=== PATIENT | male | born 1985 | race Two or more races ===

== ENCOUNTER 2023-02-08 22:47 | Emergency (ER) | payer OTHER ==
[2023-02-08 23:06] VITALS: BP 146/92; PULSE 91; RESP 20; TEMP 98.7; BMI 31.4
[2023-02-08] MEDS ORDERED: ACETAMINOPHEN 500 MG TABLET (FP) PO ONE (23:18)
[2023-02-08] MEDS ORDERED: ACETAMINOPHEN 500 MG TABLET (FP) ONE (23:20)
== END 2023-02-09 01:33 | disposition home or self-care (01) ==
LOC: JER 22:47
PROC: 0PSPXZZ Reposition Right Metacarpal, External Approach (ICD-10-PCS; principal; 2023-02-08)
PROC: 2W3GX1Z Immobilization of Right Thumb using Splint (ICD-10-PCS; 2023-02-08)
DX: S62.339A Displaced fracture of neck of unspecified metacarpal bone, initial encounter for closed fracture (principal); S62.324A Displaced fracture of shaft of fourth metacarpal bone, right hand, initial encounter for closed fracture; W22.09XA Striking against other stationary object, initial encounter
CPT/HCPCS: 73110-TC-RT-FY; 73130-TC-RT-FY; 99285-25

== ENCOUNTER 2023-04-07 16:55 | Emergency (ER) | payer OTHER ==
[2023-04-07 17:06] VITALS: BP 137/89; PULSE 83; RESP 18; TEMP 98; BMI 32.1
[2023-04-07] MEDS ORDERED: CYCLOBENZAPRINE HCL 10 MG TABLET (FP) PO ONE (17:57)
[2023-04-07] MEDS ORDERED: LIDOCAINE 5% TOPICAL PATCH TP ONE (17:57)
[2023-04-07] MEDS ORDERED: KETOROLAC TROMETHAMINE 30 MG/1 ML VIAL IM ONE (17:57)
[2023-04-07] MEDS ORDERED: KETOROLAC TROMETHAMINE 30 MG/1 ML VIAL ONE (17:59)
[2023-04-07] MEDS ORDERED: CYCLOBENZAPRINE HCL 10 MG TABLET (FP) ONE (17:59)
[2023-04-07] MEDS ORDERED: LIDOCAINE 5% TOPICAL PATCH ONE (17:59)
[2023-04-07] MEDS ORDERED: LIDOCAINE PATCH REMOVAL MC SCH (22:00)
== END 2023-04-07 19:19 | disposition home or self-care (01) ==
LOC: JERFT 16:55
PROC: 3E0233Z Introduction of Anti-inflammatory into Muscle, Percutaneous Approach (ICD-10-PCS; principal; 2023-04-07)
DX: R07.2 Precordial pain (principal); M94.0 Chondrocostal junction syndrome [Tietze]; V49.50XA Passenger injured in collision with unspecified motor vehicles in traffic accident, initial encounter
CPT/HCPCS: 71045-TC-FY; 93005; 93010; 99284-25

== ENCOUNTER 2023-06-28 08:46 | Emergency (ER) | payer OTHER ==
[2023-06-28 08:54] VITALS: BMI 30.7
[2023-06-28] MEDS ORDERED: DEXAMETHASONE SOD PHOSPHATE 10 MG/1 ML VIAL PO ONE (09:24)
[2023-06-28] MEDS ORDERED: ACETAMINOPHEN 500 MG TABLET (FP) PO ONE (09:24)
[2023-06-28] MEDS ORDERED: DEXAMETHASONE SOD PHOSPHATE 10 MG/1 ML VIAL ONE (09:29)
[2023-06-28] MEDS ORDERED: ACETAMINOPHEN 500 MG TABLET (FP) ONE (09:29)
[2023-06-28 10:08] LABS: THROAT:GRP A STREP NOT DETECTED (NOTDETECTED)
[2023-06-28 11:19] LABS: BASO % 0.7 % (0-2.0); EOS % 0.3 % (0-4.5); HEMATOCRIT 44.9 % (35.4-49); HEMOGLOBIN 15.5 GM/dL (11.7-16.9); LYMPH % 14.8 % (8-40); MCH 30.7 pg (25.7-33.7); MCHC 34.5 g/dl (32.0-35.9); MEAN CELL VOLUME 88.9 fl (80-96); MEAN PLT VOLUME 6.8 fl (7.5-11.1); MONO % 2.7 % (3.8-10.2); NEUT % 81.5 % (42.8-82.8); PLATELET COUNT 356 10^3/uL (134-434); RBC 5.05 M/mm3 (4.00-5.60); RDW 12.8 % (11.9-15.9); WHITE BLOOD COUNT 11.6 K/mm3 (4.0-10.0)
[2023-06-28 11:41] LABS: POTASSIUM 4.6 mmol/L (3.5-5.1)
[2023-06-28 11:43] LABS: BLOOD UREA NITROGEN 12.6 mg/dL (7-18); CALCIUM 9.1 mg/dL (8.5-10.1)
[2023-06-28] MEDS ORDERED: IBUPROFEN 600 MG TABLET (FP) PO ONE ×2 (14:06→14:42)
[2023-06-28 16:29] VITALS: BP 135/78; PULSE 85; RESP 18; TEMP 98
== END 2023-06-28 16:29 | disposition home or self-care (01) ==
LOC: JER 08:46
PROC: 3E033NZ Introduction of Analgesics, Hypnotics, Sedatives into Peripheral Vein, Percutaneous Approach (ICD-10-PCS; principal; 2023-06-28)
DX: J02.9 Acute pharyngitis, unspecified (principal); Z20.822 Contact with and (suspected) exposure to COVID-19
CPT/HCPCS: 0241U-QW; 36415; 70491-TC; 80048; 85025; 87651; 99284-25; J1100

== ENCOUNTER 2025-02-04 10:49 | Emergency (ER) | payer OTHER ==
[2025-02-04 11:14] VITALS: BP 128/88; PULSE 117; RESP 20; BMI 30.4
[2025-02-04] MEDS ORDERED: ACETAMINOPHEN 500 MG TABLET (FP) ONE (11:54)
[2025-02-04] MEDS ORDERED: KETOROLAC TROMETHAMINE 30 MG/1 ML VIAL ONE (11:54)
[2025-02-04] MEDS: KETOROLAC TROMETHAMINE 30 MG/1 ML VIAL IM ONE (11:59)
[2025-02-04] MEDS: ACETAMINOPHEN 500 MG TABLET (FP) PO ONE (11:59)
[2025-02-04] MEDS ORDERED: ALBUTEROL SO4 2.5/IPRATROPIUM 0.5 INH SOL 3 ML VIAL.NEB. NEB ONE (12:09)
[2025-02-04] MEDS: ALBUTEROL SO4 2.5/IPRATROPIUM 0.5 INH SOL 3 ML VIAL.NEB. NEB ONE (12:14)
[2025-02-04 12:52] VITALS: TEMP 97.4
== END 2025-02-04 13:02 | disposition home or self-care (01) ==
LOC: JERFT 10:49 → JER 10:49 → JERFT 13:02
PROC: 3E0233Z Introduction of Anti-inflammatory into Muscle, Percutaneous Approach (ICD-10-PCS; principal; 2025-02-04)
PROC: 3E0F7GC Introduction of Other Therapeutic Substance into Respiratory Tract, Via Natural or Artificial Opening (ICD-10-PCS; 2025-02-04)
DX: J10.1 Influenza due to other identified influenza virus with other respiratory manifestations (principal); R05.9 Cough, unspecified; R50.9 Fever, unspecified; M79.10 Myalgia, unspecified site; M54.9 Dorsalgia, unspecified; R11.2 Nausea with vomiting, unspecified; R19.7 Diarrhea, unspecified
CPT/HCPCS: 0241U-QW; 71046-TC-FY; 87651; 99284-25